=== PATIENT | male | born 1975 ===

== ENCOUNTER → 2022-01-13 | Outpatient (CLI) | payer OTHER ==
[2022-01-13 12:44] LABS: BASOPHILS ABSOLUTE AUTO 0.03 K/mm3 (0.00-0.23); BASOPHILS PERCENT AUTO 0 % (0-2); EOSINOPHILS ABSOLUTE AUTO 0.07 K/mm3 (0.00-0.68); EOSINOPHILS PERCENT AUTO 1 % (0-6); Hemoglobin 14.9 g/dL (13.5-17.5); IMMATURE GRAN ABSOLUTE AUTO 0.03 K/mm3 (0.00-0.10); IMMATURE GRAN PERCENT AUTO 0 % (0-1); LYMPHOCYTES ABSOLUTE AUTO 1.64 K/mm3 (0.84-5.20); LYMPHOCYTES PERCENT AUTO 23 % (21-46); MONOCYTES ABSOLUTE AUTO 0.51 K/mm3 (0.16-1.47); MONOCYTES PERCENT AUTO 7 % (4-13); Mean Corpuscular HGB 33.3 pg (26.0-34.0); Mean Corpuscular HGB Conc 34.7 g/dL (31.5-36.5); Mean Corpuscular Volume 96 fL (80-100); Mean Platelet Volume 9.6 fL (9.1-12.4); NEUTROPHILS ABSOLUTE AUTO 4.92 K/mm3 (1.96-9.15); NEUTROPHILS PERCENT AUTO 68 % (41-73); Platelet Count 228 K/mm3 (150-400); RDW Standard Deviation 41.9 fL (35.1-46.3); Red Blood Cell Count 4.48 M/mm3 (4.30-5.90)
[2022-01-13 12:57] LABS: Anion Gap 7 mmol/L (6-16); Blood Urea Nitrogen 9 mg/dL (8-24); Bun/Creatinine Ratio 9.3 (12.0-20.0); CO2, Blood 29 mmol/L (21-32); Calcium, Blood 9.1 mg/dL (8.5-10.1); Chloride, Blood 106 mmol/L (98-108); Creatinine, Blood 0.97 mg/dL (0.60-1.20); Glomerular Filtration Rate >60 (60-); Glucose, Blood 99 mg/dL (70-99); Potassium, Blood 4.4 mmol/L (3.5-5.5); Sodium, Blood 142 mmol/L (136-145)
== END ==
LOC: LAB SHORT 12:41
PROVIDERS: Family Medicine
DX: R10.9 Unspecified abdominal pain (principal)
CPT/HCPCS: 80048; 85025

== ENCOUNTER 2023-02-05 10:44 | Day surgery (SDC) | payer OTHER ==
[~2023-02-05] VITALS: Ht 177.8 cm; Wt 117.0 kg
== END 2023-02-05 12:45 | disposition home or self-care (01) ==
LOC: ORSCSDS 10:44
PROVIDERS: Internal Medicine Gastroenterology
PROC: 0DBP8ZX Excision of Rectum, Via Natural or Artificial Opening Endoscopic, Diagnostic (ICD-10-PCS; principal; 2023-02-05 12:00)
PROC: 0DBH8ZX Excision of Cecum, Via Natural or Artificial Opening Endoscopic, Diagnostic (ICD-10-PCS; principal; 2023-02-05 12:00)
PROC: 0DBM8ZX Excision of Descending Colon, Via Natural or Artificial Opening Endoscopic, Diagnostic (ICD-10-PCS; principal; 2023-02-05 12:00)
PROC: 0DBK8ZX Excision of Ascending Colon, Via Natural or Artificial Opening Endoscopic, Diagnostic (ICD-10-PCS; principal; 2023-02-05 12:00)
PROC: 0DBL8ZX Excision of Transverse Colon, Via Natural or Artificial Opening Endoscopic, Diagnostic (ICD-10-PCS; principal; 2023-02-05 12:00)
DX: Z87.19 Personal history of other diseases of the digestive system (principal); K57.30 Diverticulosis of large intestine without perforation or abscess without bleeding
CPT/HCPCS: 88305; J2250; J2704; J7120

== ENCOUNTER 2023-11-04 06:29 | Inpatient (IN) | payer OTHER ==
[2023-11-04] VITALS (17 sets, daily range): BP systolic 113–135; BP diastolic 74–98
[~2023-11-04] VITALS: Ht 177.8 cm; Wt 111.6 kg
[~2023-11-04 06:29] MED LIST: ERGO400 PO
--- NOTE | 2023-11-04 06:50 | NUR ---
PT TO DAY SURGERY FOR OPEN INCISIONAL HERNIA REPAIR WITH COMPONENT SEPERATION. PLAN OF CARE DISCUSSED. QUESTIONS ANSWERED.
[2023-11-04 13:51] LABS: Albumin, Blood 3.2 g/dL (3.4-5.0); Bilirubin, Total 0.6 mg/dL (0.1-1.0); Bun/Creatinine Ratio 13.2 (12.0-20.0); Calcium, Blood 8.3 mg/dL (8.5-10.1); Creatinine, Blood 0.83 mg/dL (0.60-1.20); Globulin, Blood 3.3 g/dL (2.2-4.0); Potassium, Blood 5.2 mmol/L (3.5-5.5); Total Protein, Blood 6.5 g/dL (6.4-8.2)
--- NOTE | 2023-11-04 17:38 | NUR ---
SHIFT SUMMARY PT TO SURGICAL UNIT FROM OR AT APPROX 1330. VSS NO ACUTE CHANGES. PT DECLINES NEUROLOGY PHYSICIAN AT THIS TIME BUT IS EDUCATED THAT IT IS AVAILABLE TO PT IF PT CHOOSES.PT MEDICATED PER EMAR FOR PAIN. PELVIC BINDER APPLIED. TO BEDSIDE TO DISCUSS SURGICAL FINDINGS WITH PT. SPOUSE AT BEDSIDE. KOCH CATHETER IN PLACE DRAINING TO GRAVITIY.
[2023-11-05 02:34] VITALS: BP 122/71
--- NOTE | 2023-11-05 04:43 | NUR ---
SHIFT SUMMARY POD 1 EX LAP WITH KEN PT PAINFUL DRUING THE NIGHT, LABELS MOLDER STARTED, PAIN MANAGED AFTER. PT ABLE TO TOLERATE SIPS AND CHIPS. FRANCHESCA TO MIDLINE C/D/I. ABD IS VERY TENDER. KOCH TO COME OUT THIS MORNING. PT STATES HE IS HAVING SOME GAS PAIN AND PASSING SOME GAS. NO OTHER CONCERNS AT THIS TIME. CALL LIGHT WITHIN REACH.
[2023-11-05 05:19] LABS: BASOPHILS ABSOLUTE AUTO 0.02 K/mm3 (0.00-0.23); BASOPHILS PERCENT AUTO 0 % (0-2); EOSINOPHILS ABSOLUTE AUTO 0.01 K/mm3 (0.00-0.68); EOSINOPHILS PERCENT AUTO 0 % (0-6); Hematocrit 39.5 % (37.0-53.0); Hemoglobin 13.6 g/dL (13.5-17.5); IMMATURE GRAN ABSOLUTE AUTO 0.04 K/mm3 (0.00-0.10); IMMATURE GRAN PERCENT AUTO 0 % (0-1); LYMPHOCYTES ABSOLUTE AUTO 1.67 K/mm3 (0.84-5.20); LYMPHOCYTES PERCENT AUTO 14 % (21-46); MONOCYTES ABSOLUTE AUTO 1.34 K/mm3 (0.16-1.47); MONOCYTES PERCENT AUTO 11 % (4-13); Mean Corpuscular HGB 33.5 pg (26.0-34.0); Mean Corpuscular HGB Conc 34.4 g/dL (31.5-36.5); Mean Corpuscular Volume 97 fL (80-100); Mean Platelet Volume 9.8 fL (9.1-12.4); NEUTROPHILS ABSOLUTE AUTO 9.04 K/mm3 (1.96-9.15); NEUTROPHILS PERCENT AUTO 75 % (41-73); Platelet Count 203 K/mm3 (150-400); RDW Coefficient Variation 11.5 % (11.7-14.2); RDW Standard Deviation 41.1 fL (35.1-46.3); Red Blood Cell Count 4.06 M/mm3 (4.30-5.90); White Blood Cell Count 12.12 K/mm3 (4.00-11.30)
[2023-11-05 05:56] LABS: Bun/Creatinine Ratio 14.8 (12.0-20.0); Calcium, Blood 8.1 mg/dL (8.5-10.1); Creatinine, Blood 0.94 mg/dL (0.60-1.20); Magnesium, Blood 1.8 mg/dL (1.6-2.4)
[2023-11-05 08:36] VITALS: BP 123/88
[2023-11-05 14:47] VITALS: BP 115/72
--- NOTE | 2023-11-05 16:02 | NUR ---
SHIFT SUMMARY: POD 1 EX LAP WITH BIOPSY PATIENT IS A&OX4. VS ARE WNL AND IS ON RA. PAIN IS MANAGED WITH PO TYLENOL AND IV TORADOL. PATIENT HAS ABD MIDLINE WITH FRANCHESCA THAT IS C/D/I. PATIENT HAS BEEN TOLERATING HIS ICE CHIPS/WATER MAJORITY OF THE SHIFT. PATIENT WILL BE TRYING A REGULAR DIET FOR DINNER TONIGHT PER DR. KHANNA ORDERS. HE HAS AMBULATED IN THE HALLWAYS AT LEAST 3 TIMES AND IS A SBA DUE TO CORDS. PATIENT IS PASSING GAS AND IS VOIDING. PATIENT CALLS APPROPRIATELY WITH CALL LIGHT IN REACH. THE PLAN IS FOR DR. KHANNA TO CONTACT AN [facility] DOCTOR THIS WEEKEND TO MAKE SURE THE PATIENT CAN HAVE HIS HERNIA REPAIR SAFELY. IF IT IS SAFE FOR HIS HERNIA REPAIR SURGERY TO BE DONE IT MIGHT HAPPEN EITHER WEDNESDAY OR Wednesday. HOWEVER, IF THE SURGERY IS NOT SAFE THE PATIENT WILL BE SET UP AN OUTPATIENT FOR [facility]. OTHERWISE, CONTINUE PAIN MANAGEMENT AND BOWEL CARE.
[2023-11-05 19:25] VITALS: BP 116/77
[2023-11-06 04:29] VITALS: BP 113/77
--- NOTE | 2023-11-06 06:14 | NUR ---
SHIFT SUMMARY AOX4. NO ACUTE CHANGES THIS SHIFT. VSS. POD 2-EX LAP. MIDLINE ABD FRANCHESCA DRESSING INTACT c SUCTION, SCANT SHADOWING ON LOWER PART OF BANDAGE. TOLERATING MIN PO INTAKE. HAD NAUSEA 1X, MEDICATED c ZOFRAN & NO FURTHER DISCOMFORT REPORTED. REPORTS 5-6/10 ABD PAIN, MEDICATED c TYLENOL & IV TORADOL ALONG c ENCOURAGING PT TO AMBULATE HALLS. REPORTS PASSING FLATUS. PT ABLE TO REST WELL AFTER AMBULATION. CALL LIGHT IN REACH. WILL MONITOR.
[2023-11-06 08:20] VITALS: BP 122/76
--- NOTE | 2023-11-06 11:47 | NUR ---
TELEPHONE ORDER RECIEVED FROM DR DILL FOR ZOFRAN 4MG SOLUTAB 1 TAB Q8 PRN N/V. RX CALLED TO [facility]
--- NOTE | 2023-11-06 11:47 | NUR ---
DISCHARGE: PT D/C @1147 VIA WHEELCHAIR. EDUCATION AND DISCHARGE INSTRUCTIONS PROVIDED TO PT AND SPOUSE. ALL BELONGINGS WITH PATIENT.
== END 2023-11-06 11:48 | disposition home or self-care (01) | DRG 337 ==
LOC: SURS 06:29 → PRE IP 08:00 → SURS 13:28
PROVIDERS: ADMIT Surgery
PROC: 0WBH0ZX Excision of Retroperitoneum, Open Approach, Diagnostic (ICD-10-PCS; 2023-11-04)
PROC: 0DQV0ZZ Repair Mesentery, Open Approach (ICD-10-PCS; 2023-11-04)
PROC: 0DNW0ZZ Release Peritoneum, Open Approach (ICD-10-PCS; principal; 2023-11-04 08:00)
DX: K43.2 Incisional hernia without obstruction or gangrene (principal); R19.09 Other intra-abdominal and pelvic swelling, mass and lump; K40.20 Bilateral inguinal hernia, without obstruction or gangrene, not specified as recurrent; K66.0 Peritoneal adhesions (postprocedural) (postinfection); Z53.8 Procedure and treatment not carried out for other reasons; Z28.21 Immunization not carried out because of patient refusal
CPT/HCPCS: 36415; 74178; 80048; 80053; 83735; 85025; 86301; 88304; 94660; 94762; A9270; J0690; J1100; J1170; J1650; J1885; J2250; J2405; J2704; J2710; J3010; J7120; Q9967

== ENCOUNTER → 2024-02-08 | Outpatient (CLI) | payer OTHER | END | disposition home or self-care (01) | LOC: LAB 09:19 → LAB SHORT 09:19 | DX: R82.90 Unspecified abnormal findings in urine (principal) | CPT/HCPCS: 87086 ==

== ENCOUNTER 2024-08-12 10:34 | Emergency (ER) | payer OTHER ==
[~2024-08-12] VITALS: Ht 177.8 cm; Wt 113.4 kg
[2024-08-12 14:10] VITALS: BP 138/84
== END 2024-08-12 14:09 | disposition home or self-care (01) ==
LOC: ER 10:34
DX: R10.32 Left lower quadrant pain (principal); Z87.19 Personal history of other diseases of the digestive system; Z98.890 Other specified postprocedural states; Z88.0 Allergy status to penicillin
CPT/HCPCS: 76857; 99284-25

== ENCOUNTER 2025-04-21 15:33 | Emergency (ER) | payer OTHER ==
[~2025-04-21] VITALS: Ht 177.8 cm; Wt 104.3 kg
[2025-04-21 16:04] VITALS: BP 131/101
[2025-04-21 16:30] LABS: BASOPHILS ABSOLUTE AUTO 0.03 K/mm3 (0.00-0.23); BASOPHILS PERCENT AUTO 0 % (0-2); EOSINOPHILS ABSOLUTE AUTO 0.18 K/mm3 (0.00-0.68); EOSINOPHILS PERCENT AUTO 2 % (0-6); Hematocrit 36.2 % (37.0-53.0); Hemoglobin 12.2 g/dL (13.5-17.5); IMMATURE GRAN ABSOLUTE AUTO 0.03 K/mm3 (0.00-0.10); IMMATURE GRAN PERCENT AUTO 0 % (0-1); LYMPHOCYTES ABSOLUTE AUTO 1.65 K/mm3 (0.84-5.20); LYMPHOCYTES PERCENT AUTO 22 % (21-46); MONOCYTES ABSOLUTE AUTO 0.58 K/mm3 (0.16-1.47); MONOCYTES PERCENT AUTO 8 % (4-13); Mean Corpuscular HGB 32.5 pg (26.0-34.0); Mean Corpuscular HGB Conc 33.7 g/dL (31.5-36.5); Mean Corpuscular Volume 97 fL (80-100); Mean Platelet Volume 9.7 fL (9.1-12.4); NEUTROPHILS ABSOLUTE AUTO 4.91 K/mm3 (1.96-9.15); NEUTROPHILS PERCENT AUTO 67 % (41-73); Platelet Count 240 K/mm3 (150-400); RDW Coefficient Variation 11.9 % (11.7-14.2); RDW Standard Deviation 42.5 fL (35.1-46.3); Red Blood Cell Count 3.75 M/mm3 (4.30-5.90); White Blood Cell Count 7.38 K/mm3 (4.00-11.30)
[2025-04-21 17:01] LABS: Albumin, Blood 3.2 g/dL (3.4-5.0); Albumin/Globulin Ratio 0.9 (0.8-1.8); Bilirubin, Total 0.4 mg/dL (0.1-1.0); Bun/Creatinine Ratio 10.5 (12.0-20.0); Calcium, Blood 9.2 mg/dL (8.5-10.1); Creatinine, Blood 1.05 mg/dL (0.60-1.20); Globulin, Blood 3.6 g/dL (2.2-4.0); Potassium, Blood 3.7 mmol/L (3.5-5.5); Total Protein, Blood 6.8 g/dL (6.4-8.2)
[2025-04-21] MEDS ORDERED: OxyCODONE HCL 5 MG TAB PO ONE (18:00)
== END 2025-04-21 18:18 | disposition home or self-care (01) ==
LOC: ER 15:33
PROVIDERS: Student in an Organized Health Care Education/Training Program
DX: L76.22 Postprocedural hemorrhage of skin and subcutaneous tissue following other procedure (principal); Z88.0 Allergy status to penicillin
CPT/HCPCS: 80053; 83690; 85025; A9270